=== PATIENT | female | born 1965 | race Caucasian/White ===

== ENCOUNTER → 2016-05-21 | Outpatient (CLI) | payer BC ==
[~2016-05-21] VITALS: Ht 180.3 cm; Wt 108.9 kg
[~2016-05-21] MED LIST: ADDERALL20 MG PO; ATIVAN; BACTRIM,SEPT1 TABLET; BYSTOLIC5 MG; CIPRO500 MG PO; DOXYCYCLINE HY100 MG PO; DULERA 200 MCG/13 GM IH; ENABLEX15 MG; ERGOCALCIF50000 UNIT PO; HYOMAX-SL0.125 MG; HYOMAX-SL0.125 MG SL; LEVOTHYROXINE200 MC1; METFORMIN HCL1000 MG PO; METFORMIN HCL850 MG PO; MONTELUKAST SOD10 MG; MYRBETRIQ25 MG PO; PANTOPRAZOLE SO40 MG; PEN-VEE K,VEET500 MG; PERCOCET 5/31 TABLET PO; PREMARIN0.625 MG; PREMARIN0.625 MG PO; PROAIR HFA8.5 GM IH; PROTONIX40 MG; PROTONIX40 MG PO; SANCTURA XR60 MG; SERTRALINE HCL100 MG; SINGULAIR10 MG; SINGULAIR10 MG PO; SYMBICORT60 INHALAT; SYNTHROID137 MCG PO; SYNTHROID175 MCG; TOPROL XL25 MG PO; XOPENEX HF200 INHALA; XOPENEX HF200 INHALA IH; ZETIA10 MG; ZITHROMAX250 MG PO; ZOFRAN8 MG PO; ZOLOFT100 M1 PO; ZYRTEC10 M3 PO; [UNRECOGNIZED DRUG - CODE] PO
[2016-05-21 13:20] LABS: POINT-OF-CARE METER ID UU13113694
== END | disposition home or self-care (01) ==
LOC: AMB 11:30
PROVIDERS: Internal Medicine
PROC: 0DJD8ZZ Inspection of Lower Intestinal Tract, Via Natural or Artificial Opening Endoscopic (ICD-10-PCS; principal; 2016-05-21)
DX: Z12.11 Encounter for screening for malignant neoplasm of colon (principal); Z80.0 Family history of malignant neoplasm of digestive organs; K57.30 Diverticulosis of large intestine without perforation or abscess without bleeding; K64.8 Other hemorrhoids; J45.909 Unspecified asthma, uncomplicated; I51.7 Cardiomegaly; F41.8 Other specified anxiety disorders; L30.9 Dermatitis, unspecified; E78.4 Other hyperlipidemia; I10 Essential (primary) hypertension; K21.9 Gastro-esophageal reflux disease without esophagitis; E03.9 Hypothyroidism, unspecified; E66.9 Obesity, unspecified; Z68.35 Body mass index [BMI] 35.0-35.9, adult; Z79.82 Long term (current) use of aspirin; Z91.040 Latex allergy status; Z91.09 Other allergy status, other than to drugs and biological substances; Z91.041 Radiographic dye allergy status; Z88.8 Allergy status to other drugs, medicaments and biological substances
CPT/HCPCS: 82948; 93005; B4087